=== PATIENT | male | born 1995 ===

== ENCOUNTER 2020-05-19 15:22 | Emergency (ER) | payer SELFPAY ==
--- NOTE | 2020-05-19 15:37 | EDM.PDOC ---
ED HPI GENERAL MEDICAL PROBLEM - General Chief Complaint: Abdominal Pain Stated Complaint: RIGHT SIDE ABDOMINAL PAIN Time Seen by Provider: 05/19/20 15:28 Source of Information: Reports: Patient History Limitations: Reports: No Limitations - History of Present Illness INITIAL COMMENTS - FREE TEXT/NARRATIVE: HISTORY AND PHYSICAL: History of present illness: Patient is a 24-year-old male who presents to the ED today with concern of right lower quadrant abdominal pain that started early this morning at around 4 5 AM. Patient states since the pain has started, he has also had 4 episodes of vomiting and states he has not been able to keep any food down. Patient states he has tried taking Pepto Bismol but has not been able to keep this down. Patient states he is also had one softer stool but denies diarrhea. Patient denies any health history or any abdominal surgeries. Denies any other symptoms or concerns. Patient denies fever, chills, chest pain, shortness of breath, or cough. Denies headache, neck stiff ness, change in vision, syncope, or near syncope. Denies diarrhea, constipation, or dysuria. Has not noted any blood in urine or stool. Review of systems: As per history of present illness and below otherwise all systems reviewed and negative. Past medical history: As per history of present illness and as reviewed below otherwise noncontributory. Surgical history: As per history of present illness and as reviewed below otherwise noncontributory. Social history: See social history for further information Family history: As per history of present illness and as reviewed below otherwise noncontributory. Physical exam: General: Patient is alert, oriented, and in no acute distress. Patient laying comfortably on exam table. HEENT: Atraumatic, normocephalic, pupils equal and reactive bilaterally, negative for conjunctival pallor or scleral icterus, mucous membranes moist, TMs normal bilaterally, throat clear, neck supple, nontender, trachea midline. No drooling or trismus noted. No meningeal signs. No hot potato voice noted. Lungs: Patient speaking clearly without breathlessness, no wheezing or stridor, no accessory muscle use or respiratory distress. Auscultation deferred due to current COV-ID 19 outbreak. Heart: Auscultation deferred due to current COV-ID 19 outbreak. Abdomen: Soft, nondistended, moderate tenderness of the RLQ without guarding. Negative rebound. Negative for masses or hepatosplenomegaly. Negative for costovertebral tenderness. Pelvis: Stable nontender. Genitourinary: Deferred. Rectal: Deferred. Skin: Intact, warm, dry. No lesions or rashes noted. Extremities: Atraumatic, negative for cords or calf pain. Neurovascular unremarkable. Neuro: Awake, alert, oriented. Cranial nerves II through XII unremarkable. Cerebellum unremarkable. Motor and sensory unremarkable throughout. Exam nonfocal. Notes: Discussed importance for follow-up with the urologist. Signs and symptoms that would prompt return to the ED thoroughly discussed with patient. Voices understanding and is agreeable to plan of care. Denies any further questions or concerns at this time. Diagnostics: CBC, CMP, UA, lactate, blood cultures x2, abdominal pelvic CT with contrast Therapeutics: Saline, Zofran, morphine, Toradol Prescription: Flomax, [place] #15, Zofran Impression: Ureterolithiasis Plan: 1. Take medication as prescribed. You can also alternate ibuprofen and Tylenol as directed for pain and discomfort. 2. Strain urine as discussed. Follow-up with the urologist as discussed. Return to the ED as needed and as discussed. Definitive disposition and diagnosis as appropriate pending reevaluation and review of above. R lower quadrant Pain Score (Numeric/FACES): 3 - Related Data Allergies Allergy/AdvReac Type Severity Reaction Status Date / Time No Known Allergies Allergy Verified 05/19/20 15:45 Home Meds: Home Meds Acetaminophen/HYDROcodone [[place] 325-7.5 MG] 1 tab PO Q6H PRN #15 tab 05/19/20 [Rx] Ondansetron [Zofran ODT] 4 mg PO Q6H PRN #8 tab.dis 05/19/20 [Rx] Tamsulosin HCl [Flomax] 0.4 mg PO DAILY #5 cap.er.24h 05/19/20 [Rx] ED ROS GENERAL - Review of Systems Review Of Systems: Comprehensive ROS is negative, except as noted in HPI. ED EXAM, GENERAL - Physical Exam Exam: See Below (See dictation) Course - Vital Signs Last Recorded V/S: Last Vital Signs Temp 97.8 F 05/19/20 15:45 Pulse 76 05/19/20 18:51 Resp 18 05/19/20 18:51 BP 125/66 05/19/20 18:51 Pulse Ox 98 05/19/20 18:51 - Orders/Labs/Meds Orders: Active Orders 24 hr Category Date Time Status Communication Order [RC] STAT Care 05/19/20 18:53 Active CULTURE BLOOD [BC] Stat Lab 05/19/20 16:20 Received CULTURE BLOOD [BC] Stat Lab 05/19/20 16:29 Received Blood Culture x2 Reflex Set [OM.PC] Stat Oth 05/19/20 16:09 Ordered Labs: Laboratory Tests 05/19/20 05/19/20 05/19/20 Range/Units 16:01 16:01 16:06 WBC 12.99 H (4.0-11.0) K/uL RBC 5.06 (4.50-5.90) M/uL Hgb 14.7 (13.0-17.0) g/dL Hct 43.9 (38.0-50.0) % MCV 86.8 (80.0-98.0) fL MCH 29.1 (27.0-32.0) pg MCHC 33.5 (31.0-37.0) g/dL RDW Std Deviation 40.1 (28.0-62.0) fl RDW Coeff of Millie 13 (11.0-15.0) % Plt Count 285 (150-400) K/uL MPV 9.70 (7.40-12.00) fL Neut % (Auto) 90.7 H (48.0-80.0) % Lymph % (Auto) 5.2 L (16.0-40.0) % [place]ill % (Auto) 3.9 (0.0-15.0) % Eos % (Auto) 0.0 (0.0-7.0) % Baso % (Auto) 0.2 (0.0-1.5) % Neut # (Auto) 11.8 H (1.4-5.7) K/uL Lymph # (Auto) 0.7 (0.6-2.4) K/uL Estill # (Auto) 0.5 (0.0-0.8) K/uL Eos # (Auto) 0.0 (0.0-0.7) K/uL Baso # (Auto) 0.0 (0.0-0.1) K/uL Nucleated RBC % 0.0 /100WBC Nucleated RBCs # 0 K/uL Lactate (0.20-2.00) mmol/L Sodium 138 (136-148) mmol/L Potassium 4.0 (3.5-5.1) mmol/L Chloride 101 (98-107) mmol/L Carbon Dioxide 27.1 (21.0-32.0) mmol/L BUN 17 (7.0-18.0) mg/dL Creatinine 1.4 H (0.8-1.3) mg/dL Est Cr Clr Drug Dosing 84.64 mL/min Estimated GFR (MDRD) > 60.0 ml/min Glucose 114 H (74-106) mg/dL Calcium 9.2 (8.5-10.1) mg/dL Total Bilirubin 0.5 (0.2-1.0) mg/dL AST 26 (15-37) IU/L ALT 45 (14-63) IU/L Alkaline Phosphatase 72 (46-116) U/L Total Protein 7.9 (6.4-8.2) g/dL Albumin 4.4 (3.4-5.0) g/dL Globulin 3.5 (2.6-4.0) g/dL Albumin/Globulin Ratio 1.3 (0.9-1.6) Lipase 39 L (73-393) U/L Urine Color YELLOW Urine Appearance CLEAR Urine pH 6.5 (5.0-8.0) Ur Specific Pope >= 1.030 (1.001-1.035) Urine Protein NEGATIVE (NEGATIVE) mg/dL Urine Glucose (UA) NEGATIVE (NEGATIVE) mg/dL Urine Ketones 15 H (NEGATIVE) mg/dL Urine Occult Blood NEGATIVE (NEGATIVE) Urine Nitrite NEGATIVE (NEGATIVE) Urine Bilirubin NEGATIVE (NEGATIVE) Urine Urobilinogen 0.2 (<2.0) EU/dL Ur Leukocyte Esterase NEGATIVE (NEGATIVE) 05/19/20 Range/Units 16:29 WBC (4.0-11.0) K/uL RBC (4.50-5.90) M/uL Hgb (13.0-17.0) g/dL Hct (38.0-50.0) % MCV (80.0-98.0) fL MCH (27.0-32.0) pg MCHC (31.0-37.0) g/dL RDW Std Deviation (28.0-62.0) fl RDW Coeff of Millie (11.0-15.0) % Plt Count (150-400) K/uL MPV (7.40-12.00) fL Neut % (Auto) (48.0-80.0) % Lymph % (Auto) (16.0-40.0) % Estill % (Auto) (0.0-15.0) % Eos % (Auto) (0.0-7.0) % Baso % (Auto) (0.0-1.5) % Neut # (Auto) (1.4-5.7) K/uL Lymph # (Auto) (0.6-2.4) K/uL Estill # (Auto) (0.0-0.8) K/uL Eos # (Auto) (0.0-0.7) K/uL Baso # (Auto) (0.0-0.1) K/uL Nucleated RBC % /100WBC Nucleated RBCs # K/uL Lactate 1.2 (0.20-2.00) mmol/L Sodium (136-148) mmol/L Potassium (3.5-5.1) mmol/L Chloride (98-107) mmol/L Carbon Dioxide (21.0-32.0) mmol/L BUN (7.0-18.0) mg/dL Creatinine (0.8-1.3) mg/dL Est Cr Clr Drug Dosing mL/min Estimated GFR (MDRD) ml/min Glucose (74-106) mg/dL Calcium (8.5-10.1) mg/dL Total Bilirubin (0.2-1.0) mg/dL AST (15-37) IU/L ALT (14-63) IU/L Alkaline Phosphatase (46-116) U/L Total Protein (6.4-8.2) g/dL Albumin (3.4-5.0) g/dL Globulin (2.6-4.0) g/dL Albumin/Globulin Ratio (0.9-1.6) Lipase (73-393) U/L Urine Color Urine Appearance Urine pH (5.0-8.0) Ur Specific Pope (1.001-1.035) Urine Protein (NEGATIVE) mg/dL Urine Glucose (UA) (NEGATIVE) mg/dL Urine Ketones (NEGATIVE) mg/dL Urine Occult Blood (NEGATIVE) Urine Nitrite (NEGATIVE) Urine Bilirubin (NEGATIVE) Urine Urobilinogen (<2.0) EU/dL Ur Leukocyte Esterase (NEGATIVE) Meds: Medications Discontinued Medications Generic Name Dose Route Start Last Admin Trade Name Freq PRN Reason Stop Dose Admin Sodium Chloride 1,000 mls @ 999 mls/hr 05/19/20 15:54 05/19/20 16:07 Normal Saline IV 05/19/20 16:54 999 mls/hr BOLUS ONE Administration Iopamidol 100 ml 05/19/20 19:31 05/19/20 19:32 Isovue-370 (76%) IVPUSH 05/19/20 19:32 100 ml ONETIME STA Administration Ketorolac Tromethamine 30 mg 05/19/20 18:49 05/19/20 18:55 Toradol IVPUSH 05/19/20 18:50 30 mg ONETIME ONE Administration Morphine Sulfate 2 mg 05/19/20 15:55 05/19/20 16:08 Morphine IVPUSH 05/19/20 15:56 2 mg ONETIME ONE Administration Morphine Sulfate 2 mg 05/19/20 17:01 05/19/20 17:06 Morphine IVPUSH 05/19/20 17:02 2 mg ONETIME ONE Administration Morphine Sulfate 2 mg 05/19/20 18:48 05/19/20 18:53 Morphine IVPUSH 05/19/20 18:49 2 mg ONETIME ONE Administration Ondansetron HCl 4 mg 05/19/20 15:54 05/19/20 16:07 Zofran IVPUSH 05/19/20 15:55 4 mg ONETIME ONE Administration Departure - Departure Time of Disposition: 18:51 Disposition: Home, Self-Care 01 Clinical Impression: Ureterolithiasis - Discharge Information Prescriptions: Tamsulosin HCl [Flomax] 0.4 mg PO DAILY #5 cap.er.24h Acetaminophen/HYDROcodone [[place] 325-7.5 MG] 1 tab PO Q6H PRN #15 tab PRN Reason: Pain (Severe 7-10) Ondansetron [Zofran ODT] 4 mg PO Q6H PRN #8 tab.dis PRN Reason: Nausea/Vomiting Instructions: Kidney Stones, [id number] Referrals: PCP,None [Primary Care Provider] - Forms: ED Department Discharge Additional Instructions: The following information is given to patients seen in the emergency department who are being discharged to home. This information is to outline your options for follow-up care. We provide all patients seen in our emergency department with a follow-up referral. The need for follow-up, as well as the timing and circumstances, are variable depending upon the specifics of your emergency department visit. If you don't have a primary care physician on staff, we will provide you with a referral. We always advise you to contact your personal physician following an emergency department visit to inform them of the circumstance of the visit and for follow-up with them and/or the need for any referrals to a consulting specialist. The emergency department will also refer you to a specialist when appropriate. This referral assures that you have the opportunity for follow-up care with a specialist. All of these measure are taken in an effort to provide you with optimal care, which includes your follow-up. Under all circumstances we always encourage you to contact your private physician who remains a resource for coordinating your care. When calling for follow-up care, please make the office aware that this follow-up is from your recent emergency room visit. If for any reason you are refused follow-up, please contact the [facility] Emergency Department at and asked to speak to the emergency department charge nurse. [facility] [address] [place] [id number] [address] [facility] [address] [place] [id number] 1. Take medication as prescribed. You can also alternate ibuprofen and Tylenol as directed for pain and discomfort. 2. Strain urine as discussed. Follow-up with the urologist as discussed. Return to the ED as needed and as discussed. Sepsis Event Note (ED) - Focused Exam Vital Signs: Vital Signs Temp Pulse Resp BP Pulse Ox 05/19/20 18:51 76 18 125/66 98 05/19/20 17:08 79 18 140/74 98 05/19/20 15:45 97.8 F 91 18 151/83 H 97 - My Orders Last 24 Hours: My Active Orders 05/19/20 16:09 Blood Culture x2 Reflex Set [OM.PC] Stat 05/19/20 16:20 CULTURE BLOOD [BC] Stat 05/19/20 16:29 CULTURE BLOOD [BC] Stat 05/19/20 18:53 Communication Order [RC] STAT - Assessment/Plan Last 24 Hours: My Active Orders 05/19/20 16:09 Blood Culture x2 Reflex Set [OM.PC] Stat 05/19/20 16:20 CULTURE BLOOD [BC] Stat 05/19/20 16:29 CULTURE BLOOD [BC] Stat 05/19/20 18:53 Communication Order [RC] STAT
[2020-05-19] MEDS ORDERED: Ondansetron 4 MG/2 ML SDV IVPUSH ONE (15:54)
[2020-05-19] MEDS ORDERED: Sodium Chloride 0.9% 1,000 ML IV ONE (15:54)
[2020-05-19] MEDS ORDERED: Morphine 2 MG/ML SYRINGE IVPUSH ONE ×3 (15:55→18:48)
[2020-05-19 16:41] LABS: BLOOD UREA NITROGEN,BUN 17 mg/dL (7.0-18.0); CARBON DIOXIDE,CO2 27.1 mmol/L (21.0-32.0); CHLORIDE,CL 101 mmol/L (98-107); GLUCOSE RANDOM 114 mg/dL (74-106); LIPASE 39 U/L (73-393); SODIUM,NA 138 mmol/L (136-148)
--- NOTE | 2020-05-19 18:35 | CT ---
CT abdomen and pelvis Technique: Multiple axial sections were obtained from above the dome of the diaphragm inferiorly through the pubic symphysis. Intravenous contrast was utilized. No oral contrast has been given. Reconstructed coronal and sagittal images were reviewed. Findings: Right ureter is prominent in size. Delayed contrast enhancement of the right kidney is seen. These findings are caused by an obstructing distal right ureteral stone located slightly proximal to the UVJ. This stone measures 2.3 mm. No other ureteral calculi are seen. No renal calculi are appreciated. Other findings: Visualized lung bases show nothing acute. Liver contains no focal parenchymal abnormality. Spleen appears normal. Adrenal glands show no nodule. Pancreas is within normal limits. Aorta shows no aneurysm. No retroperitoneal adenopathy or mesenteric abnormalities are seen. No pelvic mass or adenopathy is seen. No free fluid or inflammatory change is appreciated. Appendix is felt to be visualized and is normal in size. Impression: 1. Findings within the right kidney and ureter as noted above. Findings are caused by an obstructing 2.3 mm stone within the distal right ureter close to the UVJ. 2. No other acute finding is seen on CT study of the abdomen and pelvis. Diagnostic code #3 This report was dictated in MDT
[2020-05-19] MEDS ORDERED: Ketorolac 30 MG/ML SDV IVPUSH ONE (18:49)
[2020-05-19] MEDS ORDERED: Iopamidol 755 Mg/ML 100 ML Bottle IVPUSH STA (19:31)
== END 2020-05-19 21:05 | disposition home or self-care (01) ==
LOC: MW.ED 15:22
DX: N20.1 Calculus of ureter (principal)
CPT/HCPCS: 36415; 74177; 80053; 81003; 83605; 83690; 85025; 87040; 96361; 96374; 96375; 96376; 99284; J1885; J2270; J2405; J7030; Q9967; 99283